=== PATIENT | male | born 1950 | race Caucasian/White ===

== ENCOUNTER 2023-12-19 04:59 | Day surgery (SDC) | payer OTHER ==
[2023-12-11 15:12] VITALS: BMI 28.3
[2023-12-19] MEDS ORDERED: CEFAZOLIN SODIUM 2 GM in DEXTROSE 5%-WATER 100 ML IVPB ONE (09:05)
[2023-12-19] MEDS ORDERED: ceFAZolin SODIUM 1 GM VIAL ONE (09:09)
[2023-12-19] MEDS ORDERED: FENTANYL CITRATE/PF 50 MCG/ML VIAL ONE ×4 (10:29→14:02)
[2023-12-19] MEDS ORDERED: PROPOFOL 20 ML ONE (10:29)
[2023-12-19] MEDS ORDERED: ROCURONIUM BROMIDE 50 MG/5 ML SYRINGE ONE (10:29)
[2023-12-19] MEDS ORDERED: BUPIVACAINE HCL/PF 0.25% (2.5MG/ML) 10 ML VIAL ONE (11:10)
[2023-12-19] MEDS ORDERED: ONDANSETRON 4 MG/2 ML VIAL IVPUSH PRN (11:13)
[2023-12-19] MEDS ORDERED: oxyCODONE HCL 5 MG TABLET PO PRN (11:13)
[2023-12-19] MEDS ORDERED: cefOXitin SODIUM 2 GM VIAL (RESTRICTED TO ID) IVPB ONE (11:14)
[2023-12-19] MEDS ORDERED: LACTATED RINGERS SOLUTION 1,000 ML IV SCH (11:15)
[2023-12-19] MEDS ORDERED: MIDAZOLAM HCL 2 MG/2 ML SINGLE DOSE VIAL ONE ×2 (11:29→11:33)
[2023-12-19] MEDS: cefOXitin SODIUM 2 GM VIAL (RESTRICTED TO ID) IVPB ONE (11:31)
[2023-12-19] MEDS ORDERED: DEXAMETHASONE SOD PHOSPHATE 4 MG/1 ML VIAL ONE (11:47)
[2023-12-19] MEDS ORDERED: ONDANSETRON 4 MG/2 ML VIAL ONE (11:47)
[2023-12-19] MEDS: BUPIVACAINE HCL/PF 0.25% (2.5MG/ML) 10 ML VIAL IJ ONE (11:56)
[2023-12-19] MEDS ORDERED: NEOSTIGMINE METHYLSULFATE 0.5 MG/1 ML - 10 ML MDV ONE (12:55)
[2023-12-19] MEDS ORDERED: GLYCOPYRROLATE 0.2 MG/1 ML VIAL ONE (12:57)
[2023-12-19] MEDS: ACETAMINOPHEN 1000 MG/100 ML BAG IVPB ONE (13:50)
[2023-12-19] MEDS: KETOROLAC TROMETHAMINE 30 MG/1 ML VIAL IVPUSH ONE (13:50)
[2023-12-19] MEDS ORDERED: ACETAMINOPHEN INJECTION 100 ML IVPB ONE (13:52)
[2023-12-19] MEDS ORDERED: KETOROLAC TROMETHAMINE 30 MG/1 ML VIAL ONE (13:53)
[2023-12-19 15:18] VITALS: PULSE 82
[2023-12-19 15:30] VITALS: BP 146/75; RESP 18; TEMP 97.8
== END 2023-12-19 16:46 | disposition home or self-care (01) ==
LOC: JASU-SURG 04:59
PROVIDERS: ATTEND Surgery
PROC: 0FT44ZZ Resection of Gallbladder, Percutaneous Endoscopic Approach (ICD-10-PCS; principal; 2023-12-19 12:30)
DX: K80.20 Calculus of gallbladder without cholecystitis without obstruction (principal)
CPT/HCPCS: 47562; S2900; 82962; 88304-TC; 94760; J0131

== ENCOUNTER 2024-03-04 04:37 | Day surgery (SDC) | payer OTHER ==
[2024-02-06 09:10] VITALS: BMI 28.1
[~2024-03-04 04:37] MED LIST: BUPIVACAINE HCL/PF 0.25% (2.5MG/ML) 10 ML VIAL IJ ONE; ceFAZolin SODIUM 1 GM VIAL IVPB ONE
[2024-03-04 08:04] VITALS: RESP 16
[2024-03-04] MEDS ORDERED: ceFAZolin SODIUM 1 GM VIAL ONE (08:29)
[2024-03-04] MEDS ORDERED: CEFAZOLIN SODIUM 2 GM in DEXTROSE 5%-WATER 100 ML IVPB ONE (10:00)
[2024-03-04] MEDS ORDERED: LIDOCAINE HCL/PF 2% SDV 5ML VIAL ONE (10:19)
[2024-03-04] MEDS ORDERED: ONDANSETRON 4 MG/2 ML VIAL ONE (10:19)
[2024-03-04] MEDS ORDERED: DEXAMETHASONE SOD PHOSPHATE 4 MG/1 ML VIAL ONE (10:19)
[2024-03-04] MEDS ORDERED: MIDAZOLAM HCL 2 MG/2 ML SINGLE DOSE VIAL ONE (10:20)
[2024-03-04] MEDS ORDERED: FENTANYL CITRATE/PF 50 MCG/ML VIAL ONE ×3 (10:20→16:38)
[2024-03-04] MEDS ORDERED: ROCURONIUM BROMIDE 50 MG/5 ML VIAL ONE (10:20)
[2024-03-04] MEDS ORDERED: PROPOFOL 40 ML ONE (10:20)
[2024-03-04] MEDS ORDERED: oxyCODONE HCL 5 MG TABLET PO PRN (11:56)
[2024-03-04] MEDS ORDERED: ONDANSETRON 4 MG/2 ML VIAL IVPUSH PRN (11:56)
[2024-03-04] MEDS ORDERED: BUPIVACAINE HCL/PF 0.25% (2.5MG/ML) 10 ML VIAL ONE (11:58)
[2024-03-04] MEDS ORDERED: LACTATED RINGERS SOLUTION 1,000 ML IV SCH (12:00)
[2024-03-04] MEDS: ceFAZolin SODIUM 1 GM VIAL IVPB ONE (13:10)
[2024-03-04] MEDS: BUPIVACAINE HCL/PF 0.25% (2.5MG/ML) 10 ML VIAL IJ ONE (13:18)
[2024-03-04] MEDS ORDERED: KETOROLAC TROMETHAMINE 30 MG/1 ML VIAL ONE (17:07)
[2024-03-04] MEDS: KETOROLAC TROMETHAMINE 30 MG/1 ML VIAL IVPUSH ONE (17:10)
[2024-03-04] MEDS ORDERED: LORazepam 1 MG TABLET ONE (17:24)
[2024-03-04] MEDS: LORazepam 0.5 MG TABLET PO ONE (17:30)
[2024-03-04 18:28] VITALS: TEMP 98
[2024-03-04 19:28] VITALS: BP 135/72; PULSE 60
== END 2024-03-04 19:00 | disposition home or self-care (01) ==
LOC: JASU-SURG 04:37
PROVIDERS: ATTEND Surgery
PROC: 8E0W4CZ Robotic Assisted Procedure of Trunk Region, Percutaneous Endoscopic Approach (ICD-10-PCS; 2024-03-04)
PROC: 0YUA4JZ Supplement Bilateral Inguinal Region with Synthetic Substitute, Percutaneous Endoscopic Approach (ICD-10-PCS; principal; 2024-03-04 10:30)
DX: K40.20 Bilateral inguinal hernia, without obstruction or gangrene, not specified as recurrent (principal)
CPT/HCPCS: 49650; S2900; 82962; 94760; C1781

== ENCOUNTER 2024-03-12 19:27 | Emergency (ER) | payer OTHER ==
[2024-03-12 19:33] VITALS: BP 131/78; PULSE 85; RESP 18; TEMP 99.8; BMI 28.1
[2024-03-12] MEDS: PIPERACILLIN/TAZOBACTAM 4.5 GM VIAL IVPB ONE (20:06)
[2024-03-12] MEDS ORDERED: PIPERACILLIN/TAZOB 4.5 GM 4.5 GM/100 ML BAG IVPB ONE (20:13)
[2024-03-12] MEDS: VANCOMYCIN 1,750 MG in DEXTROSE 5%-WATER - 500 ML IVPB ONE (20:41)
[2024-03-12 20:55] LABS: VENOUS BASE EXCESS 0.4 mmol/L (-2-2); VENOUS O2 SATURATION 89.3 % (70-80); VENOUS PCO2 35.8 mmHg (38-52); VENOUS PH 7.444 (7.310-7.410)
[2024-03-12 20:58] LABS: BASO % 0.5 % (0-2.0); EOS % 0.3 % (0-4.5); HEMATOCRIT 39.9 % (35.4-49); HEMOGLOBIN 13.7 GM/dL (11.7-16.9); LYMPH % 11.7 % (8-40); MCH 32.8 pg (25.7-33.7); MCHC 34.4 g/dl (32.0-35.9); MEAN CELL VOLUME 95.4 fl (80-96); MEAN PLT VOLUME 7.8 fl (7.5-11.1); MONO % 6.7 % (3.8-10.2); NEUT % 80.8 % (42.8-82.8); PLATELET COUNT 277 10^3/uL (134-434); RBC 4.18 M/mm3 (4.00-5.60); RDW 14.1 % (11.9-15.9); WHITE BLOOD COUNT 9.6 K/mm3 (4.0-10.0)
[2024-03-12 21:03] LABS: PH,URINE 5.5 (5.0-8.0); URINE APPEARANCE Error; URINE BILIRUBIN NEGATIVE (NEGATIVE); URINE COLOR YELLOW; URINE GLUCOSE (UA) 3+ (NEGATIVE); URINE KETONE NEGATIVE (NEGATIVE); URINE LEUK ESTERASE NEGATIVE (NEGATIVE); URINE NITRITE NEGATIVE (NEGATIVE); URINE PROTEIN NEGATIVE (NEGATIVE); URINE UROBILINOGEN 0.2 mg/dL (0.2-1.0)
[2024-03-12 21:05] LABS: INR 0.97 (0.83-1.09); PROTHROMBIN TIME (PATIENT) 11.2 SEC (9.7-13.0)
[2024-03-12 21:08] LABS: ACTIVATED PTT 31.5 SECONDS (25.2-36.5)
[2024-03-12 21:17] LABS: POTASSIUM 4.4 mmol/L (3.5-5.1)
[2024-03-12 21:18] LABS: ALBUMIN 4.4 g/dl (3.4-5.0); BLOOD UREA NITROGEN 24.6 mg/dL (7-18)
[2024-03-12] MEDS: SODIUM CHLORIDE 0.9% 1000 ML INFUS.BAG IV STA (21:20)
[2024-03-12 21:22] LABS: CREATININE 1.7 mg/dL (0.55-1.3)
[2024-03-12 21:23] LABS: BILIRUBIN,TOTAL 0.5 mg/dL (0.2-1); TOT PROT 7.5 g/dl (6.4-8.2)
[2024-03-12] MEDS ORDERED: LORazepam 0.5 MG TABLET ONE (22:25)
[2024-03-12] MEDS: LORazepam 0.5 MG TABLET PO ONE (22:33)
== END 2024-03-13 00:23 | disposition home or self-care (01) ==
LOC: JER 19:27
DX: N17.9 Acute kidney failure, unspecified (principal); G89.18 Other acute postprocedural pain; R10.9 Unspecified abdominal pain; R53.1 Weakness; L76.32 Postprocedural hematoma of skin and subcutaneous tissue following other procedure; Z20.822 Contact with and (suspected) exposure to COVID-19
CPT/HCPCS: 0241U-QW; 36415; 71046-TC-FY; 74177-TC; 80053; 81003; 82803; 83605; 84484; 85025; 85610; 85730; 86850; 86900; 86901; 87040; 87077; 87086; 93005; 93010; 96374; 99285-25